=== PATIENT | male | born 1960 | race Caucasian/White ===

== ENCOUNTER 2017-02-07 18:34 | Emergency (ER) | payer BC ==
[2017-02-07] MEDS ORDERED: NEURONTIN300 M1 PO (18:51)
[2017-02-07] MEDS ORDERED: HYDROCORTISON28.411 TP (19:32)
== END 2017-02-07 19:52 ==
LOC: EDMED 18:34
DX: K64.8 Other hemorrhoids (principal); K64.4 Residual hemorrhoidal skin tags; I10 Essential (primary) hypertension; F32.9 Major depressive disorder, single episode, unspecified; Z87.891 Personal history of nicotine dependence; Z79.899 Other long term (current) drug therapy